=== PATIENT | male | born 1955 | race Caucasian/White ===

== ENCOUNTER → 2019-08-06 | Outpatient (CLI) | payer SELFPAY ==
--- NOTE | 2019-08-06 08:46 | REPVR ---
PROCEDURE INFORMATION: Exam: MR Lumbar Spine Without Contrast. Exam date and time: 08/06/2019 8:24 AM Age: 63 years old Clinical indication: Lumbago with sciatica; Left; Prior surgery; Surgery date: 6+ months; Surgery type: Laminectomy; Additional info: Lbp TECHNIQUE: Imaging protocol: Multiplanar magnetic resonance images of the lumbar spine without intravenous contrast. COMPARISON: No relevant prior studies available. FINDINGS: Vertebrae: The alignment is anatomic. The vertebral body heights are maintained. No compression fracture. Spinal cord: The demonstrated cord is normal in signal intensity. The conus medullaris terminates normally. T12-L1: Intervertebral disc well hydrated. No disc herniation identified. No stenosis. L1-L2: Mild disc desiccation. Mild annular bulging posterolaterally toward the left impressing minimally on the ventral aspect of the sac. No disc herniation identified. No stenosis. Facets intact. L2-L3: Mild disc desiccation. Mild annular bulging. No disc herniation or stenosis. Mild facet degenerative change. L3-L4: Disc desiccation. Left central extruded disc herniation migrating inferiorly into the left lateral recess the recess impressing upon the left lateral aspect of the thecal sac and the traversing left-sided roots. The exiting L3 roots seen in the neural foramen. No bony stenosis. Moderate facet degenerative change with mild ligamentous infolding. L4-L5: Disc desiccation with disc space narrowing and mild endplate degenerative changes. Mild annular bulging. Moderate facet degenerative change with medial spurring and ligamentous infolding. Posterior decompression with laminectomy at the L5 levels. Mild bilateral inferior neural foraminal encroachment. The exiting L4 roots demonstrated. L5-S1: Disc desiccation. Annular bulging with small annular fissure posteriorly to the left of midline. Posterior decompression. No central canal stenosis. Medial spurring off of the facets. There is an element of lateral recess narrowing the right S1 root appears slightly displaced. The exiting L5 roots demonstrated. Other bones/joints: No suspicious marrow replacing lesions. Soft tissues: No paraspinal soft tissue mass. IMPRESSION: 1. At L3-L4, left central extruded disc herniation migrating inferiorly into the left lateral recess impressing upon the left lateral aspect of the thecal sac and the traversing left-sided roots. The exiting L3 roots seen in the neural foramen. Moderate facet degenerative change with mild ligamentous infolding. No bony stenosis. 2. At L4-L5: Mild annular bulging. Moderate facet degenerative change with medial spurring and ligamentous infolding. Posterior decompression with laminectomy at the L5 levels. Mild bilateral inferior neural foraminal encroachment. The exiting L4 roots demonstrated. 3. At L5-S1, annular bulging with small annular fissure posteriorly to the left of midline. Posterior decompression. No central canal stenosis. Medial spurring off of the facets. There is an element of lateral recess narrowing. The right S1 root is slightly displaced. The exiting L5 roots demonstrated. 4. Additional mild degenerative changes as described above. Electronically signed by: Erasmo Villasenor On 08/06/2019 08:46:36 AM
== END ==
LOC: M RAD 07:27
PROVIDERS: ATTEND Orthopaedic Surgery
DX: M54.5 Low back pain (principal)

== ENCOUNTER → 2020-07-13 | Outpatient (CLI) | payer MEDICARE ==
--- NOTE | 2020-07-13 11:47 | REP ---
INDICATION: CKD 3B, CYST OF KIDNEY COMPARISON: None TECHNIQUE: Real time elias scale ultrasound examination using curved array transducer. FINDINGS: Right kidney measures 12.7 x 6.8 x 7.2 cm and demonstrates increased central sinus fat suggesting chronic medical renal disease. No hydronephrosis, nephrolithiasis, cystic or renal mass lesion. Left kidney measures 12.6 x 6.0 x 6.8 cm and demonstrates increased central sinus fat suggesting chronic medical renal disease along with 1.8 x 1.7 x 1.7 cm upper pole cortical cyst. No hydronephrosis, nephrolithiasis or renal mass lesion. Bladder is grossly unremarkable. IMPRESSION: 1. Chronic medical renal disease. 2. 1.8 cm upper pole left renal cyst. <Electronically signed by Erasmo Case > 07/13/20 [id number]
== END ==
LOC: M RAD 10:58
PROVIDERS: ATTEND Internal Medicine Nephrology
DX: N28.1 Cyst of kidney, acquired (principal); N18.32 Chronic kidney disease, stage 3b

== ENCOUNTER → 2020-09-21 | Outpatient (REF) | payer MEDICARE | LOC: M LAB REF 12:50 | PROVIDERS: ATTEND Internal Medicine Nephrology | DX: E83.42 Hypomagnesemia (principal) ==